=== PATIENT | female | born 1975 | race Hispanic/Latino ===

== ENCOUNTER 2019-04-15 15:28 | Outpatient (CLI) | payer MEDICAID ==
--- NOTE | 2019-04-15 16:15 | MMO ---
Bilateral MAMMO Bilat Screen DDI. CLINICAL HISTORY: Patient is 43 years old and is seen for screening. The patient has no family history of breast cancer. The patient has no personal history of cancer. VIEWS: The views performed were: bilateral craniocaudal and bilateral mediolateral oblique. This study has been interpreted with the assistance of computer-aided detection. MAMMOGRAM FINDINGS: There are scattered fibroglandular densities. There is an area of architectural distortion seen in the middle lower-inner region of the left breast. In the right breast, there are no suspicious masses, calcifications or areas of architectural distortion. IMPRESSION: AREA OF ARCHITECTURAL DISTORTION IN THE LEFT BREAST REQUIRES ADDITIONAL EVALUATION. ADDITIONAL IMAGING. ACR BI-RADS Category 0 - Incomplete: Need additional imaging evaluation. [facility] will notify the patient of the need for additional imaging services. MAMMOGRAPHY NOTE: 1. A negative mammogram report should not delay a biopsy if a dominant of clinically suspicious mass is present. 2. Approximately 10% to 15% of breast cancers are not detected by mammography. 3. Adenosis and dense breasts may obscure an underlying neoplasm.
== END 2019-04-15 15:29 | disposition home or self-care (01) ==
LOC: SCSMAMMO 15:28
PROVIDERS: ATTEND Hospitalist
DX: Z12.31 Encounter for screening mammogram for malignant neoplasm of breast (principal)
CPT/HCPCS: 77067

== ENCOUNTER 2019-04-19 13:20 | Outpatient (CLI) | payer MEDICAID ==
--- NOTE | 2019-04-19 15:15 | ULT ---
FOCUSED ULTRASOUND OF THE LEFT BREAST: Date: 04/19/19 COMPARISON: None. HISTORY: Palpable abnormality at the 3 o'clock position of the left breast. FINDINGS: Focused ultrasound in the area of palpable concern at the 3-5 o'clock position of the left breast is unremarkable. No mass or abnormal shadowing. IMPRESSION: BIRADS Category 1 - Negative. Recommend annual screening mammography. POS: OFF
--- NOTE | 2019-04-19 15:18 | MMO ---
Left Breast MAMMO Unilat Diag DDI LT+FRANK. CLINICAL HISTORY: Patient is 43 years old and is seen for diagnostic exam and palpable abnormality in the left breast. The patient has no family history of breast cancer. The patient has no personal history of cancer. VIEWS: The views performed were: left craniocaudal; left craniocaudal with tomosynthesis; left mediolateral oblique with tomosynthesis; and left mediolateral. FILMS COMPARED: The present examination has been compared to prior imaging studies performed at [facility] on 04/15/2019, and at [facility] on 04/19/2019. MAMMOGRAM FINDINGS: There are scattered fibroglandular densities. The area of concern noted on the recent screening examination did not persist. The area of palpable concern is unremarkable as well. There are no suspicious masses, suspicious calcifications, or new areas of architectural distortion. IMPRESSION: THERE IS NO MAMMOGRAPHIC EVIDENCE OF MALIGNANCY. A ROUTINE FOLLOW-UP MAMMOGRAM IN 1 YEAR IS RECOMMENDED. THE RESULTS OF THIS EXAM WERE SENT TO THE PATIENT. ACR BI-RADS Category 2 - Benign finding MAMMOGRAPHY NOTE: 1. A negative mammogram report should not delay a biopsy if a dominant of clinically suspicious mass is present. 2. Approximately 10% to 15% of breast cancers are not detected by mammography. 3. Adenosis and dense breasts may obscure an underlying neoplasm.
== END 2019-04-19 13:21 | disposition home or self-care (01) ==
LOC: BICMAMMO 13:20
PROVIDERS: ATTEND Hospitalist
DX: R92.2 Inconclusive mammogram (principal)
CPT/HCPCS: G0279